=== PATIENT | female | born 1980 | race Caucasian/White ===

== ENCOUNTER 2017-02-11 19:36 | Inpatient (IN) ==
[2017-02-12] MEDS ORDERED: ONDANSETRON 4 MG/2 ML VIAL IV PRN ×2 (00:10→14:10)
[2017-02-12] MEDS: LACTATED RINGERS 1,000 ML IV SCH (05:20)
[2017-02-12] MEDS ORDERED: OXYTOCIN/LR 20 UNIT/1,000 ML BAG IV SCH (06:00)
[2017-02-12 06:13] LABS: Basophils % 0.3 % (0.0-0.8); Eosinophils # 0.1 10*3/uL (0.0-0.87); Eosinophils % 0.8 % (0.00-10.9); Hematocrit 31.8 VOL% (35.7-47.0); Hemoglobin 10.4 GM/DL (12.0-16.0); Immature Granulocytes % 0.8 %; Immature Granulocytes Absolute 0.06 #; Lymphocytes # 2.7 10*3/uL (1.4-4.0); Lymphocytes % 35.1 % (21.3-54.2); Mean Corpuscular HGB Conc 32.7 GM/DL (32-36); Mean Corpuscular Hemoglobin 28 PG (27-34); Mean Corpuscular Volume 85.5 FL (87-102); Mean Platelet Volume 11.6 FL (9.6-12.0); Monocytes # 0.5 10*3/uL (0.11-0.8); Monocytes % 6.3 % (1.7-12.7); Neutrophils # 4.4 10*3/uL (1.4-7.4); Neutrophils % 56.7 % (38.7-73.9); Platelet Count 190 T/CUMM (130-400); Red Blood Count 3.72 MC/CUMM (3.8-5.5); Red Cell Distribution Width 14.8 % (9.3-17.3); White Blood Count 7.7 T/CUMM (4-12)
[2017-02-12 06:45] LABS: Albumin 2.4 G/DL (3.4-5.0); Bilirubin,Total 0.8 MG/DL (0.2-1.0); Calcium 8.2 MG/DL (8.5-10.1); Osmolality,Calculated 272.5 MOS/KG (273-304); Potassium 3.9 MMOL/L (3.5-5.1); Uric Acid 3.2 MG/DL (2.6-6.0)
--- NOTE | 2017-02-12 08:12 | OB/GYN History & Physical ---
History of Present Illness Chief complaint: 39 weeks gestation History of present illness: Ms. Cedillo is a 36 year old female 3 para 2 EDC is 02/19/2017 at 39 weeks gestation who presents at the 470 and -3 station. Patient has a known history of macrosomia with her first 2 babies. Risks and benefits were thoroughly discussed she is in full agreement. Patient presented last evening with irregular uterine contractions she was observed and because of her history of being 4 cm 70%, she was admitted at midnight at 39 weeks gestation. She be receiving an epidural risks benefits were thoroughly discussed she is in full agreement. heart tones at the present time are within normal limits. Home Medications Medication Instructions Recorded Confirmed Type Vit No.124/Iron/Folic 1 tablet PO DAILY 02/12/17 02/12/17 History [ Vitamin Tablet] Allergies Allergy/AdvReac Type Severity Reaction Status Date / Time sulfamethoxazole AdvReac Verified 02/11/17 23:15 [From Bactrim] trimethoprim [From Bactrim] AdvReac Verified 02/11/17 23:15 Medical,Surgical,& Family Hx - Medical History Reproductive: History of: Endometriosis No history of: Ectopic , Complication - Surgical History Reproductive Surgeries: Surgical HX of;: Gynecologic Surgery (laps x3) Patient denies;: Section - Family History Family History: Reports;: Family Diabetes (mgm), Family Stroke (mgf) Denies;: Additional Family History - Social History Smoking Status: Never smoker Frequency of Alcohol Use: None Type of Drug Use: 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: Vital Signs Temp 02/12/17 04:00 97.8 F 02/12/17 00:10 97.6 F 02/12/17 00:00 97.6 F General appearance: no acute distress - Antepartum / Post Antepartum Exam Cervix - Dilatation: 4 Effacement: 70 Station: -3 Rupture: Intact - Head Head exam: Present: normal inspection - Eye Eye exam: Present: EOMI Pupils: Present: BABAK - ENT ENT exam: Present: normal exam - Neck Neck exam: Present: normal inspection - Respiratory Respiratory exam: Present: clear to auscultation bilaterally - Breast Breasts: as per HPI Menstruation: as per HPI - Cardiovascular Cardiovascular exam: Present: regular rate and rhythm - GI/Abdominal GI/Abdominal exam: Present: normal bowel sounds - Extremities Exam Extremities exam: Present: normal inspection - Back Exam Back exam: Present: normal inspection - Neurological Exam Neurological exam: Present: alert, oriented X3 - Psychiatric Psychiatric exam: Present: normal affect - Skin Skin exam: Present: normal color Assessment and Plan (1) Term Status: Acute Assessment and plan: 39 weeks, 4 cm 70% -3 station, present for augmentation of labor. Risks benefits were thoroughly discussed she is in full agreement Current Visit: Yes Results - Labs CBC & BMP: 02/12/17 05:22 02/12/17 05:22
[2017-02-12] MEDS ORDERED: LACTATED RINGERS 1,000 ML IV ONE (08:40)
[2017-02-12] MEDS ORDERED: ePHEDrine 50 MG/ML AMP IV PRN (08:40)
[2017-02-12] MEDS ORDERED: CITRIC ACID/SODIUM CITRATE 30 ML UDCUP PO ONE (08:40)
[2017-02-12] MEDS ORDERED: FAMOTIDINE 20 MG/2 ML VIAL IV ONE (08:40)
[2017-02-12] MEDS ORDERED: fentaNYL 2 MCG/ROPIV 0.2% EPID 150 ML EPIDURAL SCH (08:42)
[2017-02-12] MEDS ORDERED: LACTATED RINGERS 1,000 ML IV SCH (09:00)
[2017-02-12] MEDS ORDERED: METHYLERGONOVINE 0.2 MG/1 ML AMP ONE (13:34)
[2017-02-12] MEDS ORDERED: BISACODYL 10 MG SUPP RECTAL PRN (14:10)
[2017-02-12] MEDS ORDERED: BENZOCAINE 20%/MENTHOL 0.5% SPRAY 56 GM CAN TOP PRN (14:10)
[2017-02-12] MEDS ORDERED: OXYTOCIN/LR 20 UNIT/1,000 ML BAG IV ONE (14:10)
[2017-02-12] MEDS ORDERED: HYDROCORTISONE 2.5% RECTAL CREAM 30 GM TUBE TOP PRN (14:10)
[2017-02-12] MEDS ORDERED: WITCH HAZEL PADS 100/JAR TOP PRN (14:10)
[2017-02-12] MEDS ORDERED: ACETAMINOPHEN 325 MG TABLET PO PRN (14:10)
[2017-02-12] MEDS ORDERED: LANOLIN 50% CREAM 0.3 OZ TUBE TOP PRN (14:10)
[2017-02-12] MEDS ORDERED: oxyCODONE/ACETAMINOPHEN 5-325 MG TABLET PO PRN (14:10)
--- NOTE | 2017-02-12 14:10 | Event Note ---
Stage I of labor External monitor heart tones category 1 IV Pitocin Epidural anesthetic Stage II Vacuum extraction 1 at a +2 station 1 application only. Patient not pushing effectively with the epidural Female at 1550 4 PM 8 lbs. 6 oz. Apgars was 9 at 1 minute 9 at 5 minutes Cord blood and cord gas obtained Stage III Spontaneous deliver the placenta 3 cord vessels noted Loss was less than 300 cc Second-degree laceration at the introitus repaired with 4 interrupted sutures.
[2017-02-12] MEDS ORDERED: DIPH/TET/ACEL PERT BOOSTER VACCINE 0.5 ML VIAL IM ONE (15:00)
[2017-02-12] MEDS ORDERED: MEASLES/MUMPS/RUBELLA VACCINE 0.5 ML VIAL SUBCUT ONE (15:00)
[2017-02-12] MEDS ORDERED: RHO(D) IMMUNE GLOBULIN 300 MCG SYRINGE IM ONE (15:00)
--- NOTE | 2017-02-12 15:46 | Anesthesia Post-Op ---
Anesthesia Post OP - Post Ansesthetic Evaluation Patient seen in post op: Yes Resp: within normal limits CV: within normal limits Mental: within normal limits Temp: within normal limits [id number]: within normal limits Nausea and Vomiting: within normal limits Pain: within normal limits
[2017-02-12] MEDS ORDERED: hydrOXYzine HCL 25 MG/1 ML VIAL IM PRN (17:28)
[2017-02-12] MEDS ORDERED: hydrOXYzine HCL 50 MG/1 ML VIAL IM PRN (18:00)
[2017-02-12] MEDS: DOCUSATE SODIUM 100 MG CAPSULE PO SCH (20:27)
[2017-02-12] MEDS: IBUPROFEN 800 MG TABLET PO PRN (20:41)
[2017-02-13 06:24] LABS: Basophils % 0.2 % (0.0-0.8); Eosinophils # 0.1 10*3/uL (0.0-0.87); Eosinophils % 0.7 % (0.00-10.9); Hematocrit 28.6 VOL% (35.7-47.0); Hemoglobin 9.2 GM/DL (12.0-16.0); Lymphocytes # 2.5 10*3/uL (1.4-4.0); Lymphocytes % 24.9 % (21.3-54.2); Mean Corpuscular HGB Conc 32.2 GM/DL (32-36); Mean Corpuscular Hemoglobin 28 PG (27-34); Mean Corpuscular Volume 86.1 FL (87-102); Mean Platelet Volume 11.4 FL (9.6-12.0); Monocytes # 0.6 10*3/uL (0.11-0.8); Monocytes % 5.9 % (1.7-12.7); Neutrophils # 6.8 10*3/uL (1.4-7.4); Neutrophils % 67.3 % (38.7-73.9); Platelet Count 162 T/CUMM (130-400); Red Blood Count 3.32 MC/CUMM (3.8-5.5); Red Cell Distribution Width 14.8 % (9.3-17.3); White Blood Count 10.2 T/CUMM (4-12)
[2017-02-13] MEDS: DOCUSATE SODIUM 100 MG CAPSULE PO SCH ×2 (08:40→21:08)
[2017-02-13] MEDS: IBUPROFEN 800 MG TABLET PO PRN ×2 (08:41→21:08)
--- NOTE | 2017-02-13 10:00 | OB/GYN Progress Note ---
Assessment and Plan (1) 39 weeks gestation of Status: Acute Current Visit: Yes (2) Vaginal delivery Status: Acute Assessment and plan: Initiate routine orders. 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 Bonding well with . Exam BUSINESS ADMINISTRATION TEACHER - Constitutional Vitals: Vital Signs Temp Pulse Resp BP Pulse Ox 02/13/17 07:50 96.5 F L 68 18 94/61 98 02/13/17 06:46 18 02/13/17 06:00 18 02/13/17 03:00 18 02/13/17 01:00 18 02/13/17 00:00 18 02/12/17 19:45 98.6 F 91 H 18 117/75 97 02/12/17 18:45 94 H 18 120/68 100 02/12/17 17:45 91 H 20 118/63 100 02/12/17 17:15 98 H 20 129/79 100 02/12/17 16:45 97.6 F 98 H 20 121/77 100 02/12/17 12:00 98.0 F 96 H 20 93/62 100 General appearance: no acute distress - Antepartum / Post Post Exam Breast: bilateral: normal Abdomen obstetrics: Present: bowel sounds normal Vagina: Present: normal moisture, discharge Uterus exam: Present: enlarged (Fundus firm midline) Anus/Rectum: Present: normal perianal skin - Head Head exam: Present: normal inspection - Respiratory Respiratory exam: Present: clear to auscultation bilaterally - Cardiovascular Cardiovascular exam: Present: regular rate and rhythm - GI/Abdominal GI/Abdominal exam: Present: normal bowel sounds, soft - Extremities Exam Extremities exam: Present: normal inspection - Neurological Exam Neurological exam: Present: alert, oriented X3 - Psychiatric Psychiatric exam: Present: normal affect, normal mood - Skin Skin exam: Present: normal color, warm Results - Labs CBC & BMP: 02/13/17 06:00 02/12/17 05:22
[2017-02-13] MEDS: FERROUS SULFATE 325 MG TABLET PO SCH ×2 (10:32→21:08)
[2017-02-13] MEDS: oxyCODONE/ACETAMINOPHEN 5-325 MG TABLET PO PRN ×2 (10:38→21:11)
[2017-02-13] MEDS: LACTATED RINGERS 1,000 ML IV SCH ×2 (15:42→15:43)
[2017-02-14] MEDS ORDERED: methylPREDNISolone 4 MG TABLET PO SCH ×2 (09:30)
[2017-02-14] MEDS: DOCUSATE SODIUM 100 MG CAPSULE PO SCH (09:55)
[2017-02-14] MEDS: FERROUS SULFATE 325 MG TABLET PO SCH (09:55)
[2017-02-14] MEDS: IBUPROFEN 800 MG TABLET PO PRN (10:27)
[2017-02-14 12:35] VITALS: BP 133/87
--- NOTE | 2017-02-14 13:56 | Discharge Summary ---
Hospital Course - Hospital Course Hospital Course: Status post vaginal day #2 Lungs are clear, cardiac exam benign, abdomen soft and nontender, uterus nice and firm Extremities patient describes heaviness in her left foot, however there is negative clonus negative Homans the strength in the foot is appropriate. Sensory deprivation is noted, however discussed with anesthesia, and they recommended the use of Medrol Dosepak and the possibility of using Neurontin. We will dischargehim with the Medrol Dosepak. We will hold off on the Neurontin at this particular time. Diagnosis - Discharge Diagnosis (1) Term Status: Acute Specialty Discharge - Follow Up or Referrals Follow up with: Bart Foster MD [Physician] - 03/26/17 3:00 pm Discharge Plan - Discharge Data Condition at Discharge: Stable Discharge Diet: advance to your usual diet Activity: resume usual activities as tolerated Hygiene: no restrictions Weight Bearing at Discharge: full weight bearing Driving: no restrictions Contact your physician if you experience:: fever over 101, Bleeding - Discharge Medications New Ferrous Sulfate Tab [Feosol Original Tab] 325 mg PO BID #60 tablet Gabapentin Cap/Tab [Neurontin Cap/Tab] 400 mg PO TID #20 capsule oxyCODONE/ACETAMINOPHEN 5-325 [Percocet 5-325] 1 tablet PO Q6H PRN #14 tablet PRN Reason: Pain Severe (8-10) Ibuprofen Tab [Motrin Tab] 800 mg PO Q6H PRN #60 tablet PRN Reason: Pain Moderate (4-7) No Action Vit No.124/Iron/Folic [ Vitamin Tablet] 1 tablet PO DAILY - Follow Up or Referral Follow Up: Bart Foster MD [Physician] - 03/26/17 3:00 pm - Forms/Instructions Instructions: Ibuprofen (By mouth), Oxycodone/Acetaminophen (By mouth), Perineal Care (DC), Vaginal Delivery (DC), Bleeding (DC) Exam - Constitutional Vitals: Period Temp Pulse Resp BP Sys/Barber Pulse Ox Last 24 Hr 97 F-98.3 F 61-85 18-20 95-133/50-87 96-98 DS: Provider Date of admission: 02/12/17 00:00 Primary care physician: . No PCP Attending physician on admission: Bart Foster MD Consults: 02/12/17 00:10 Consult to Anesthesiology [CONS] Routine Consulting Provider: Reason for Anesthesiology: Epidural Consult Comment: Epidural for pain managment 02/12/17 14:10 Consult to Recreational Counselor [CONS] Routine Consult Recreational Counselor: Breast Feeding 02/14/17 09:09 Consult to Physician [CONS] Routine Comment: anesthesia consult Consulting Provider: Ok German Consulting Provider Notified: No When should Consulting Provider be notified: Now Consult to Specialist Group: Neurology When should Consulting Provider be notified: Now Consult Notification Comment: attempted to call Dr. Foss office with out answer, Discharging clinician: Bart Foster MD
[2017-02-14] MEDS ORDERED: GABAPENTIN 400 MG CAPSULE PO SCH (15:00)
== END 2017-02-14 15:50 | disposition home or self-care (01) | DRG 775 ==
LOC: N.LDOUT 19:36 → N.LD 19:40 → N.OB 02-12 16:39
PROVIDERS: ADMIT Obstetrics & Gynecology; ATTEND Obstetrics & Gynecology